=== PATIENT | female | born 1960 | race Caucasian/White ===

== ENCOUNTER → 2017-04-09 | Outpatient (CLI) | payer BC ==
[~2017-04-09] MED LIST: ASPI81TA28 PO; ESCI10TA17 PO; MULT-884 PO; MXRAIN INH; OMEG12006 PO; TEMA30CA4 PO; [UNRECOGNIZED DRUG - OTHER] PO
--- NOTE | 2017-04-09 18:50 | DIAGNOSTIC IMAGING REPORT ---
R HAND MIN 3 VIEWS ROUTINE CLINICAL HISTORY: Right hand pain. Elevated sed right. COMPARISON: None. DISCUSSION: The bones are mildly osteopenic. No fractures are visualized. There are no erosive changes. IMPRESSION: 1. No acute fractures. 2. No evidence of erosive disease Electronically signed by: Rufino Aparicio M.D. 04/09/2017 6:49 PM Dictated Date/Time: 04/09/2017 6:48 PM
--- NOTE | 2017-04-09 18:52 | DIAGNOSTIC IMAGING REPORT ---
L-SPINE MIN 4 VIEWS ROUTINE CLINICAL HISTORY: Upper leg pain. Elevated sedimentation rate. COMPARISON: Lumbar spine radiographs April 08, 2009. FINDINGS: Vertebral body heights are maintained. No fracture or osseous lesion is identified on this exam. There are 5 lumbar type vertebral bodies. Disc spaces are preserved. There is mild endplate osteophytosis and mild multilevel facet arthrosis. Abdominal surgical clips are incidentally noted. IMPRESSION: 1. No lumbar spine fracture. 2. Mild multilevel degenerative disc disease and facet arthrosis. Electronically signed by: Matheus Hernandez M.D. 04/09/2017 6:50 PM Dictated Date/Time: 04/09/2017 6:48 PM
== END | disposition home or self-care (01) ==
LOC: C.RAD 18:21
PROVIDERS: ATTEND Family Medicine
DX: R76.8 Other specified abnormal immunological findings in serum (principal); R70.0 Elevated erythrocyte sedimentation rate; M25.541 Pain in joints of right hand; M79.659 Pain in unspecified thigh

== ENCOUNTER → 2017-09-07 | Outpatient (CLI) | payer OTHER ==
[2017-09-07 15:36] LABS: BASO % 0.3 %; BASO ABS # 0.02 K/uL (0-0.2); HEMATOCRIT 37.1 % (37-47); HEMOGLOBIN 12.8 g/dL (12.0-16.0); IG# 0.02 K/uL (0.00-0.02); LYMPH ABS # 2.31 K/uL (1.2-3.4); MEAN CELL VOLUME 93.5 fL (80-100); MEAN CORPUSCULAR HEMOGLOBIN 32.2 pg (25-34); MEAN CORPUSCULAR HGB CONC 34.5 g/dl (32-36); MONO % 7.5 %; MONO ABS # 0.56 K/uL (0.11-0.59); NEUT % 56.9 %; NEUT ABS # 4.23 K/uL (1.4-6.5); PLATELET COUNT 369 K/uL (130-400); RED CELL DISTRIBUTION WIDTH CV 11.6 % (11.5-14.5); RED CELL DISTRIBUTION WIDTH SD 39.2 fL (36.4-46.3); WHITE BLOOD COUNT 7.44 K/uL (4.8-10.8)
[2017-09-07 15:48] LABS: ALBUMIN 4.2 gm/dl (3.4-5.0); ALT/SGPT 34 U/L (12-78); BLOOD UREA NITROGEN 20 mg/dl (7-18); CALCIUM 9.3 mg/dl (8.5-10.1); CARBON DIOXIDE 24 mmol/L (21-32); CREATININE 1.25 mg/dl (0.60-1.20); GLUCOSE 76 mg/dl (70-99); POTASSIUM 4.1 mmol/L (3.5-5.1); SODIUM 134 mmol/L (136-145)
[2017-09-07 15:53] LABS: ALKALINE PHOSPHATASE 87 U/L (45-117); AST/SGOT 24 U/L (15-37); TOTAL PROTEIN 8.4 gm/dl (6.4-8.2)
[2017-09-07 16:07] LABS: T3 FREE 2.9 pg/ml (2.30-4.20)
[2017-09-11 15:40] LABS: MICROSOMAL AB 4 IU/ML (<9)
== END | disposition home or self-care (01) ==
LOC: C.LAB1850 13:30
PROVIDERS: ATTEND Chiropractor
DX: M79.1 Myalgia (principal)

== ENCOUNTER 2023-07-30 16:21 | Inpatient (IN) ==
--- NOTE | 2023-07-30 16:44 | ED Triage Note ---
Date of Service July 30, 2023 Provider in Triage Author: Luigi Daniel. History of Present Illness This patient was briefly evaluated while in triage. An abbreviated physical exam was performed. This patient is a 63-year-old Female who presents to the ED for evaluation of right hand swelling concern for infection secondary to a dog bite that occurred yesterday. Was bitten yesterday and put on augmentin. Hand is worse today. Referred to ED. Tdap was either 2015 or 2019. Dog up to date on immunizations. Physical Exam CONSTITUTIONAL: in no acute pain or distress, resting comfortably SKIN: pink, warm, dry MSK: R hand wrapped in bandage Initial orders for labs and / or imaging were placed and patient was placed in the waiting area until a bed is available. Please see further documentation for the full ED course.
[2023-07-30 17:20] LABS: Basophils # (auto) 0.05 K/uL (0.00-0.20); Basophils % (auto) 0.5 %; Eosinophils # (auto) 0.24 K/uL (0.00-0.50); Eosinophils % (auto) 2.5 %; Hematocrit (blood only) 38.8 % (37.0-47.0); Hemoglobin 13.2 g/dl (12.0-16.0); Immature Granulocytes # (auto) 0.03 K/uL (0.01-0.20); Immature Granulocytes % (auto) 0.3 %; Lymphocytes # (auto) 1.97 K/uL (1.20-3.40); Lymphocytes % (auto) 20.9 %; Mean Corpuscular Hemoglobin 32.1 pg (25.0-34.0); Mean Corpuscular Volume 94.4 fL (80.0-100.0); Mean Platelet Volume 10.1 fL (9.4-12.4); Monocytes # (auto) 0.89 K/uL (0.11-0.59); Monocytes % (auto) 9.4 %; Neutrophils # (auto) 6.24 K/uL (1.40-6.50); Neutrophils % (auto) 66.4 %; Platelet Count 327 K/uL (130-400); RDW Coefficient of Variation 11.3 % (11.5-14.5); RDW Standard Deviation 38.7 fL (36.4-46.3); Red Blood Count 4.11 M/uL (4.20-5.40); White Blood Count 9.42 K/ul (4.8-10.8)
--- NOTE | 2023-07-30 17:23 | XRay Report ---
RIGHT HAND 3 VIEWS CLINICAL HISTORY: Dog bite injury. Infection. FINDINGS: 3 views of the right hand are compared to study dated 04/09/2017. The skeletal structures a re osteopenic. No fracture is seen. Mild osteoarthritic change is noted throughout the hand. There is dorsal soft tissue edema. No radiodense foreign body or soft tissue gas is identified. IMPRESSION: Soft tissue swelling with no acute bony abnormality identified. Electronically signed by: Sergei Carreon M.D. 07/30/2023 5:22 PM
[2023-07-30 17:36] LABS: Albumin Globulin Ratio 1.4 (0.9-2); Albumin Level 4.6 gm/dl (3.4-5.0); Bilirubin,Total 0.6 mg/dl (0.2-1.0); Calcium 9.5 mg/dl (8.6-10.3); Creatinine Clr Calc Pharmacy 50.8 ml/min; Est GFR (Non-African American) 49.2 ml/min; Globulin 3.2 gm/dl (2.5-4.0); Potassium 4.2 mmol/L (3.5-5.1); Total Protein 7.8 gm/dl (6.0-8.3)
--- NOTE | 2023-07-30 18:30 | Emergency Department Note ---
History of Present Illness General Chief complaint: Animal Bite Stated complaint: DOG BITE ON R HAND Time Seen by Provider: 07/30/23 17:59 History of Present Illness Maximum Pain Intensity: 6 This is a 63-year-old female that presents to the emergency department via private vehicle with complaints of "dog bite to right hand". She is mostly right-hand dominant but does right with her left hand. Yesterday around 1:30 PM she notes that she accidentally stepped on a dog when she bent down. The dog then turned and bit the dorsum of the right hand. She notes that she then presented to the PCP office and it was cleansed and she was started on oral Augmentin. She notes that the dog's vaccines are up-to-date to include rabies. She states that upon awakening today she notes increased pain and swelling to the dorsum of the right hand and trouble moving her fingers. She did have a follow-up today at the PCP office and was sent to the ED today noting worsening symptoms. She denies any numbness or tingling. Home Medications Medication Instructions Recorded Confirmed Type escitalopram oxalate 10 mg tablet 10 mg PO QPM 07/18/18 07/30/23 History (Lexapro) fluticasone propionate 50 1 spray intranasal DAILY 09/15/21 07/30/23 History mcg/actuation nasal spray,suspension melatonin 10 mg tablet 10 mg PO HS 09/15/21 07/30/23 History cholecalciferol (vitamin D3) 125 125 mcg PO DAILY 10/14/21 07/30/23 History mcg (5,000 unit) capsule albuterol sulfate 1.25 mg/3 mL 1.25 mg (3 mL) inhalation QID PRN 07/03/22 07/30/23 Rx solution for nebulization shortness of breath or wheezing #90 mL azelastine 137 mcg (0.1 %) nasal 1 spray intranasal BID #30 mL 07/03/22 07/30/23 Rx spray aerosol nebulizers (Aeroneb Go Nebulizer) #1 ea 07/03/22 06/01/23 Rx budesonide-formoterol HFA 160 2 inh inhalation BID #10.2 grams 03/31/23 07/30/23 Rx mcg-4.5 mcg/actuation aerosol inhaler (Symbicort) Auto Titrating CPAP #1 ea 07/05/23 Rx CPAP Supplies #1 ea 07/05/23 Rx Medical Marijuana 1 gummy PO HS 07/30/23 07/30/23 History amoxicillin 875 mg-potassium 1 tab PO BID 07/30/23 07/30/23 History clavulanate 125 mg tablet pantoprazole 40 mg tablet,delayed 40 mg PO DAILY 07/30/23 07/30/23 History release Allergies Allergy/AdvReac Type Severity Reaction Status Date / Time Milk Containing Products Allergy Unknown Gastrointestinal Unverified 07/30/23 18:30 (Dairy) Upset Sulfa (Sulfonamide Allergy Unknown Unknown Verified 07/30/23 18:30 Antibiotics) NSAIDS (Non-Steroidal AdvReac Severe Advised to Verified 07/30/23 18:30 Anti-Inflamma avoid (solitary kidney) Past Med/Surg History Medical History Solitary kidney s/p donation (2012) Chronic back pain 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 Reactive airway disease Inhaler PRN Surgical History History of surgery Right biceps repair Status post trigger finger release History of nephrectomy, unilateral 2012 (donated) History of cholecystectomy History of appendectomy History of colonoscopy with polypectomy History of eyelid surgery History of sinus surgery History of tooth extraction Social History Smoking Status: Never smoker Tobacco Type: Cigarettes Cigarettes Per Day: 5; Second Hand Exposure: No; Do You Dip or Chew Tobacco: No; Hx Alcohol Use: No Hx Substance Use: Yes Last Used Substance Other:: Pt uses at to help her sleep Substance Use Type Other:: medical sabi Preferred Language: [place] Communication Ability: Effective Fur Stylist Required: No Beliefs That Will Affect Care: None Current Living Situation: Spouse Other Information That Helps Us Care for You: No Feels Safe at Home: Yes Safety Concerns: Feels Safe At This Time Assistive Devices: Glasses Review of Systems A total of 10 systems reviewed and were otherwise negative Physical Exam Vital Signs Vital Signs - 24 hr 07/30/23 16:35 Temperature 36.9 C Temperature Source Temporal Artery Scan Pulse Rate 89 Respiratory Rate 18 Respiratory Effort / Characteristics Non-Labored Spontaneous Respiratory Depth Normal Blood Pressure 111/77 Blood Pressure Mean 88 Pulse Oximetry 96 Oxygen Delivery Method Room Air Sepsis Recent Fever Within 48 Hours No Sepsis New/Unexplained Change in Mental Status No Sepsis Action Taken by Nursing No Action Required VITAL SIGNS - Vital signs and nursing notes were reviewed. Stable and afebrile. GENERAL -63-year-old female appearing her stated age who is in no acute distress. Communicates well with provider and answers questions appropriately. SKIN -erythema overlying the entire dorsum of the right hand with a few small puncture wounds that have crusted over. There is edema to the dorsum of the right hand as well. There is a small of erythema tracking proximal overlying the dorsum of the right wrist into the distal forearm area. No fluctuance or crepitus. HEAD - NC/AT. EYES - Sclera anicteric. LUNGS - Chest wall symmetric without accessory muscle use, intercostals retractions, or central cyanosis. Normal vesicular breath sounds CTA B/L. No wheezes, rales, or rhonchi appreciated. CARDIAC - RRR EXTREMITIES - No clubbing or peripheral cyanosis. Skin as above. Tenderness overlying the entire dorsum of the right wrist and right hand. Patient is not able to actively extend fingers of the right hand and passive extension of all fingers of the right hand does reproduce discomfort to the dorsum of the right hand. Right radial pulse intact. Cap refill of all digits of the right hand within normal limits. +5/5 strength noted in UE/LE bilaterally. NEUROLOGIC -sensory intact throughout the right upper extremity without deficit. PSYCH -patient is alert, oriented and pleasant on exam. Course Administered Medications Escitalopram Oxalate (Escitalopram Oxalate 10 Mg Tab) 10 mg PO QPM [facility] Stop: 08/29/23 23:06 Last Admin: 07/30/23 23:50 Dose: 10 mg Documented By: GERMAINE Ampicillin Sodium/Sulbactam Sodium 3,000 mg/ Sodium Chloride 100 mls @ 100 mls/hr IV Q6H [facility] Stop: 08/07/23 00:00 Last Admin: 07/30/23 23:51 Dose: 100 mls/hr Documented By: GERMAINE Morphine Sulfate (Morphine Sulfate 2 Mg/Ml Carp) 2 mg IV Q4H PRN PRN Reason: Pain(5+) Stop: 08/13/23 19:02 Last Admin: 07/30/23 23:50 Dose: 2 mg Documented By: GERMAINE Discontinued Medications Acetaminophen (Acetaminophen 325 Mg Tab) 650 mg PO NOW STA Stop: 07/30/23 19:04 Last Admin: 07/30/23 19:48 Dose: 650 mg Documented By: MILTON Diphtheria/Pertussis/Tetanus Vacc (Diphther/Tetan/Pertus Vaccine (Tdap, Adol/Adult) 0.5ml) 0.5 ml IM .ONCE ONE Stop: 07/30/23 16:39 Last Admin: 07/30/23 19:01 Dose: Not Given Documented By: FRIDA Ampicillin Sodium/Sulbactam Sodium 3,000 mg/ Sodium Chloride 100 mls @ 200 mls/hr IV NOW STA Stop: 07/30/23 18:53 Last Infusion: 07/30/23 20:42 Dose: Infused Documented By: Admin: 07/30/23 19:06 Dose: 200 mls/hr Documented By: SANCHEZ Morphine Sulfate (Morphine Sulfate 2 Mg/Ml Carp) 2 mg IV NOW STA Stop: 07/30/23 18:25 Last Admin: 07/30/23 19:06 Dose: 2 mg Documented By: SANCHEZ Ondansetron HCl (Ondansetron Inj 2 Mg/Ml 2 Ml Vial) 4 mg IV NOW STA Stop: 07/30/23 18:25 Last Admin: 07/30/23 19:05 Dose: 4 mg Documented By: SANCHEZ Medical Decision Making Laboratory Data 07/30/23 16:51 07/30/23 16:51 Lab Results 07/30/23 Range/Units 16:51 WBC 9.42 (4.8-10.8) K/ul RBC 4.11 L (4.20-5.40) M/uL Hgb 13.2 (12.0-16.0) g/dl Hct 38.8 (37.0-47.0) % MCV 94.4 (80.0-100.0) fL MCH 32.1 (25.0-34.0) pg MCHC 34.0 (32.0-36.0) g/dL RDW Std Deviation 38.7 (36.4-46.3) fL RDW Coeff of Boy 11.3 L (11.5-14.5) % Plt Count 327 (130-400) K/uL MPV 10.1 (9.4-12.4) fL Immature Gran % (Auto) 0.3 % Neut % (Auto) 66.4 % Lymph % (Auto) 20.9 % [place] % (Auto) 9.4 % Eos % (Auto) 2.5 % Baso % (Auto) 0.5 % Neut # (Auto) 6.24 (1.40-6.50) K/uL Lymph # (Auto) 1.97 (1.20-3.40) K/uL [place] # (Auto) 0.89 H (0.11-0.59) K/uL Eos # (Auto) 0.24 (0.00-0.50) K/uL Baso # (Auto) 0.05 (0.00-0.20) K/uL Immature Gran # (Auto) 0.03 (0.01-0.20) K/uL Sodium 136 (136-145) mmol/L Potassium 4.2 (3.5-5.1) mmol/L Chloride 104 (98-107) mmol/L Carbon Dioxide 24 (21-32) mmol/L Anion Gap 8 (3-11) BUN 14 (6-23) mg/dl Creatinine 1.17 (0.6-1.2) mg/dl Est Cr Clr Drug Dosing 50.8 ml/min Est GFR ( Amer) 57.0 ml/min Est GFR (Non-Af Amer) 49.2 ml/min BUN/Creatinine Ratio 12.0 (10-20) Glucose 92 (70-99(Fasting)) mg/dl Calcium 9.5 (8.6-10.3) mg/dl Total Bilirubin 0.6 (0.2-1.0) mg/dl AST 19 (13-39) U/L ALT 15 (7-52) U/L Alkaline Phosphatase 102 (34-104) U/L Total Protein 7.8 (6.0-8.3) gm/dl Albumin 4.6 (3.4-5.0) gm/dl Globulin 3.2 (2.5-4.0) gm/dl Albumin/Globulin Ratio 1.4 (0.9-2) Imaging Data Radiologist's Impression: Hand X-Ray 07/30/23 16:38 RIGHT HAND 3 VIEWS CLINICAL HISTORY: Dog bite injury. Infection. FINDINGS: 3 views of the right hand are compared to study dated 04/09/2017. The skeletal structures are osteopenic. No fracture is seen. Mild osteoarthritic change is noted throughout the hand. There is dorsal soft tissue edema. No radiodense foreign body or soft tissue gas is identified. IMPRESSION: Soft tissue swelling with no acute bony abnormality identified. Electronically signed by: Sergei Carreon M.D. 07/30/2023 5:22 PM MDM Narrative Patient was seen and evaluated as above in room D09. Review was performed of triage nursing notes and vital signs. After obtaining a thorough history and physical examination the above work up was performed. Patient presents to us today for evaluation of increasing pain, edema, erythema to the dorsum of the right hand status post dog bite yesterday despite cleansing the wounds and oral Augmentin. She is well-appearing and nontoxic on exam but appears to be in pain. Options of care were discussed with the patient. Patient was seen during a period of high volume and acuity in the department and already underwent workup from triage. Labs reveal no leukocytosis or concerning anemia. No emergent metabolic disturbance. X-ray negative for fracture. No radiopaque foreign body. Blood cultures pending. IV Unasyn was ordered for coverage of the dog bite infection to the dorsum of the right hand. I do recommend IV antibiotics and inpatient management noting location, rapid progression of the infection. Case discussed with the hospitalist service. Please refer to further documentation regarding her stay. Patient amenable to plan. I did cleanse the dorsum of the right hand with sterile saline. Thin layer bacitracin applied to the puncture wounds followed by sterile gauze and sterile wrap. Care was taken so as to not apply too tightly. In the evaluation and treatment of this patient the following differential diagnoses were entertained: Cellulitis, abscess, extensor tenosynovitis, fracture, among others. Impression & Plan Infected dog bite of hand, Cellulitis of hand, right Discharge Plan Visit Data Chief Complaint: Animal Bite Stated Complaint: DOG BITE ON R HAND ED Provider: Gayatri Lopez ED Midlevel Provider: Jack Delgado Discharge Problem: Infected dog bite of hand, Cellulitis of hand, right Patient Disposition: Admitted As Inpatient Condition: Good Discharge Instructions Interventions: ED Discharge Assessment Last Done: 07/30/23 22:37
--- NOTE | 2023-07-30 18:34 | History & Physical Report ---
Date of Service July 30, 2023 Assessment & Plan (1) Cellulitis of hand, right: Plan: -Admit to med/surge -Currently stable and non-toxic appearing -Presented to the ED for progressive swelling and erythema on the dorsum of the right hand and wrist after sustaining a dog bite on 07/29/23 -The ED was able to confirm that the dog is up to date on it's rabies vaccination -Patient is up to date on tetanus booster -Was started on Augmentin by PCP yesterday but cellulitis has progressed -Is afebrile and without leukocytosis -Blood cultures were obtained in the ED -S/P one dose of Unasyn in the ED, will continue with Unasyn for now -Currently cellulitis border was outlined on admission, monitor for improvement -Tylenol and morphine for pain -BL SCD's for DVT PPX -HH diet -AM CBC, bmp (2) Asthma: Plan: -Stable on RA -Lungs are clear -Continue PRN albuterol (3) BENITEZ on CPAP: Plan: -HS CPAP ordered Plan The patient was discussed with Dr. Yeh at the time of the admission History of Present Illness Chief Complaint: Recent animal bite, worsening Primary Care Provider: DO Nancy Lrne is a 63 year old female with a PMH significant for asthma, anxiety, and previous kidney donation for transplant who presented to the [facility] ED on 07/30/23 due to concerns of worsening cellulitis of the right hand. Per the ED, the patient was bit by her Boss' dog yesterday after she accidentally stepped on it while trying to clean something off the floor. She was seen by her PCP's office yesterday where they cleaned the wound and started her on Augmentin. She was seen for follow up earlier today and there was concern as the patient's erythema, swelling, and pain has increased. We were asked to admit the patient for IV antibiotics. She remained stable in the ED. Labs including CBC and CMP were unremarkable. Xray of the right hand was read as "Soft tissue swelling with no acute bony abnormality identified.". Prior to admission the patient was given a dose of Unasyn, 2mg IV morphine, and 4 mg IV zofran. The ED was able to confirm that the patient is up to date on her tetanus booster. At the time of the exam the patient was sitting in bed in no acute distress. She confirms the above history. She states that the swelling in the right hand is preventing her from completely closing her fist. She denies recent fever, chills, chest pain, SOB, abd pain, nausea, vomiting, diarrhea, dysuria, hematuria, melena. She is a full code and would want her to make medical decisions for her if she cannot make them herself. Please refer to Dr. Yeh's attestation for any changes to the treatment plan Allergies Allergy/AdvReac Type Severity Reaction Status Date / Time Milk Containing Products Allergy Unknown Gastrointestinal Unverified 07/30/23 18:30 (Dairy) Upset Sulfa (Sulfonamide Allergy Unknown Unknown Verified 07/30/23 18:30 Antibiotics) NSAIDS (Non-Steroidal AdvReac Severe Advised to Verified 07/30/23 18:30 Anti-Inflamma avoid (solitary kidney) Home Medications Medication Instructions Recorded Confirmed Type escitalopram oxalate 10 mg tablet 10 mg PO QPM 07/18/18 07/30/23 History (Lexapro) fluticasone propionate 50 1 spray intranasal DAILY 09/15/21 07/30/23 History mcg/actuation nasal spray,suspension melatonin 10 mg tablet 10 mg PO HS 09/15/21 07/30/23 History cholecalciferol (vitamin D3) 125 125 mcg PO DAILY 10/14/21 07/30/23 History mcg (5,000 unit) capsule albuterol sulfate 1.25 mg/3 mL 1.25 mg (3 mL) inhalation QID PRN 07/03/22 07/30/23 Rx solution for nebulization shortness of breath or wheezing #90 mL azelastine 137 mcg (0.1 %) nasal 1 spray intranasal BID #30 mL 07/03/22 07/30/23 Rx spray aerosol nebulizers (Aeroneb Go Nebulizer) #1 ea 07/03/22 06/01/23 Rx budesonide-formoterol HFA 160 2 inh inhalation BID #10.2 grams 03/31/23 07/30/23 Rx mcg-4.5 mcg/actuation aerosol inhaler (Symbicort) Auto Titrating CPAP #1 ea 07/05/23 Rx CPAP Supplies #1 ea 07/05/23 Rx Medical Marijuana 1 gummy PO HS 07/30/23 07/30/23 History amoxicillin 875 mg-potassium 1 tab PO BID 07/30/23 07/30/23 History clavulanate 125 mg tablet pantoprazole 40 mg tablet,delayed 40 mg PO DAILY 07/30/23 07/30/23 History release Past Med/Surg History Medical History Solitary kidney s/p donation (2013) Chronic back pain 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 Reactive airway disease Inhaler PRN Surgical History History of surgery Right biceps repair Status post trigger finger release History of nephrectomy, unilateral 2012 (donated) History of cholecystectomy History of appendectomy History of colonoscopy with polypectomy History of eyelid surgery History of sinus surgery History of tooth extraction Social History Smoking Status: Never smoker Tobacco Type: Cigarettes Cigarettes Per Day: 5; Second Hand Exposure: No; Do You Dip or Chew Tobacco: No; Hx Alcohol Use: No Hx Substance Use: Yes Last Used Substance Other:: Pt uses at HS to help her sleep Substance Use Type Other:: medical sabi Preferred Language: Estonian Communication Ability: Effective Field Care Advocate Required: No Beliefs That Will Affect Care: None Current Living Situation: Spouse Other Information That Helps Us Care for You: No Feels Safe at Home: Yes Safety Concerns: Feels Safe At This Time Assistive Devices: Glasses Physical Exam 2 Physical Exam: Physical Exam: General: In no acute distress, stated age, well-nourished, good hygiene HEENT: Normocephalic, atraumatic, no scleral icterus, pupils around round, symmetrical, and reactive to light, moist mucus membranes, trachea midline, no thyromegaly Chest/Pulm: No respiratory distress, symmetrical chest expansion, clear breath sounds throughout Cardiac: RRR, no murmurs noted Abdomen: Negative for ascites and bruising, normoactive bowel sounds, soft, non-tender to palpation throughout Musculoskeletal: See picture below Extremities: Radial pulses are intact and symmetrical BL Skin: See picture below Neuro: Intact sensation and motor function in the Right wrist and hand Psych: No acute distress, calm and cooperative during the exam Results & Data Results & Data Vital Signs (Past 12 Hours) Vital Signs Temp Pulse Resp BP Pulse Ox O2 Del Method 07/30/23 16:35 36.9 C 89 18 111/77 96 Room Air Laboratory Results Abnormal lab results 07/30/23 Range/Units 16:51 RBC 4.11 L (4.20-5.40) M/uL RDW Coeff of Boy 11.3 L (11.5-14.5) % [place] # (Auto) 0.89 H (0.11-0.59) K/uL Diagnostic Findings Hand X-Ray 07/30/23 16:38 RIGHT HAND 3 VIEWS CLINICAL HISTORY: Dog bite injury. Infection. FINDINGS: 3 views of the right hand are compared to study dated 04/09/2017. The skeletal structures are osteopenic. No fracture is seen. Mild osteoarthritic change is noted throughout the hand. There is dorsal soft tissue edema. No radiodense foreign body or soft tissue gas is identified. IMPRESSION: Soft tissue swelling with no acute bony abnormality identified. Electronically signed by: Sergei Carreon M.D. 07/30/2023 5:22 PM Code Status & VTE Plan Code Status Full code VTE Prophylaxis Plan VTE Prophylaxis will be ordered: Yes Supervising Physician Co-Signing Physician Notes I personally saw and examined the patient. I verified all cline points and agree with Familia James PA-C with the following exceptions and/or additions: 63 year old female presents to the ER following a dog bite. Started Augmentin yesterday (took 2 tablets). O/E HS RRR, no murmurs, Chest CTAB, cellulitis already improving from marked area. A/P Cellulitis from animal bite - Flexor surface not effected. Unasyn 3g IV q6h. Can likely go back on Augmentin on discharge - likely just didn't have time to work. Elevated RUE. PG Care Time/CCT Total # of Minutes Spent Total Time Spent with Patient: Total time spent is greater than 50% in coordination of care (as documented) at patient's floor/unit and/or counseling patient: [place] [address] INT INP/OBS CARE 2/55MIN Patient Type Established Medical Decision Making High Complexity Diagnoses Cellulitis of hand, right L03.113 Asthma J45.909 BENITEZ on CPAP G47.33
[2023-07-30] MEDS: DIPHTHER/TETAN/PERTUS Vaccine (Tdap, Adol/Adult) 0.5mL IM ONE (19:01)
[2023-07-30] MEDS: ONDANSETRON INJ 2 MG/ML 2 ML VIAL IV STA (19:05)
[2023-07-30] MEDS: MoRPHine SULFATE 2 MG/ML CARP IV STA (19:06)
[2023-07-30] MEDS: AMPICILLIN/SULBACTAM SOD 3,000 MG in SODIUM CHLOR 0.9% MINI-B 100 ML IV STA (19:06)
[2023-07-30] MEDS: ACETAMINOPHEN 325 MG TAB PO STA (19:48)
[2023-07-30] MEDS ORDERED: ALBUTEROL 0.083% NEBU SOLN 3 ML VIAL INH PRN (23:22)
[2023-07-30] MEDS: MoRPHine SULFATE 2 MG/ML CARP IV PRN (23:50)
[2023-07-30] MEDS: ESCITALOPRAM OXALATE 10 MG TAB PO SCH (23:50)
[2023-07-30] MEDS: AMPICILLIN/SULBACTAM SOD 3,000 MG in SODIUM CHLOR 0.9% MINI-B 100 ML IV SCH (23:51)
[2023-07-31] MEDS: ACETAMINOPHEN 325 MG TAB PO PRN (03:33)
[2023-07-31 06:18] LABS: Basophils # (auto) 0.03 K/uL (0.00-0.20); Basophils % (auto) 0.4 %; Eosinophils # (auto) 0.21 K/uL (0.00-0.50); Eosinophils % (auto) 2.8 %; Hematocrit (blood only) 35.4 % (37.0-47.0); Hemoglobin 11.8 g/dl (12.0-16.0); Immature Granulocytes # (auto) 0.02 K/uL (0.01-0.20); Immature Granulocytes % (auto) 0.3 %; Lymphocytes # (auto) 1.54 K/uL (1.20-3.40); Lymphocytes % (auto) 20.6 %; Mean Corpuscular Hemoglobin 32.2 pg (25.0-34.0); Mean Corpuscular Hgb Conc 33.3 g/dL (32.0-36.0); Mean Corpuscular Volume 96.7 fL (80.0-100.0); Mean Platelet Volume 9.6 fL (9.4-12.4); Monocytes % (auto) 12.1 %; Neutrophils # (auto) 4.76 K/uL (1.40-6.50); Neutrophils % (auto) 63.8 %; Platelet Count 308 K/uL (130-400); RDW Coefficient of Variation 11.3 % (11.5-14.5); RDW Standard Deviation 40.1 fL (36.4-46.3); Red Blood Count 3.66 M/uL (4.20-5.40); White Blood Count 7.46 K/ul (4.8-10.8)
--- NOTE | 2023-07-31 07:51 | Hospitalist Progress Note ---
Date of Service July 31, 2023 Assessment & Plan Plan 1) Cellulitis of hand, right: Plan: -Admit to med/surge -Currently stable and non-toxic appearing -Presented to the ED for progressive swelling and erythema on the dorsum of the right hand and wrist after sustaining a dog bite on 07/29/23 -ED confirmed dog up to date on it's rabies vaccination -Patient is up to date on tetanus booster -Started on Augmentin by PCP yesterday but cellulitis has progressed -Pt afebrile, without leukocytosis -Blood cultures obtained in the ED, pending -S/P one dose of Unasyn in the ED, continue Unasyn for now -Currently cellulitis border was outlined on admission, monitor for improvement -Tylenol and morphine for pain -BL SCD's for DVT PPX -HH diet -AM CBC, bmp (2) Asthma: -Stable on RA -Lungs are clear -Continue PRN albuterol (3) BENITEZ on CPAP: -HS CPAP ordered FENGI: regular diet Code status: Full Code DVT prophylaxis: lovenox Isolation: none Disposition: med/surg Admission and Anticipated Discharge Date Admission Date: July 30, 2023 Subjective Chief Complaint: Recent animal bite, worsening Primary Care Provider: Marybeth Avila DO Bibi is a 63 yo F w/PMHx significant for asthma, anxiety, and previous kidney donation for transplant who presented to the [facility] ED on 07/30/23 due to concerns of worsening cellulitis of the right hand. Per the ED, the patient was bit by her Boss' dog yesterday after she accidentally stepped on it while trying to clean something off the floor. She was seen by her PCP's office yesterday where they cleaned the wound and started her on Augmentin. She was seen for follow up earlier today and there was concern as the patient's erythema, swelling, and pain has increased. We were asked to admit the patient for IV antibiotics. She remained stable in the ED. Labs including CBC and CMP were unremarkable. X-ray of the right hand was read as "Soft tissue swelling with no acute bony abnormality identified.". Prior to admission the patient was given a dose of Unasyn, 2mg IV morphine, and 4 mg IV zofran. The ED was able to confirm that the patient is up to date on her tetanus booster. At the time of the exam the patient was sitting in bed in no acute distress. She confirms the above history. She states that the swelling in the right hand is preventing her from completely closing her fist. She denies recent fever, chills, chest pain, SOB, abd pain, nausea, vomiting, diarrhea, dysuria, hematuria, melena. She is a full code and would want her to make medical decisions for her if she cannot make them herself. Review of Systems Constitutional: no fever, no chills and no fatigue Respiratory: no cough, no chest congestion and no dyspnea Cardiovascular: no chest pain and no palpitations Gastrointestinal: no abdominal pain, no nausea, no vomiting, no constipation and no diarrhea/loose stools Musculoskeletal: + swelling (dorsal aspect of r. hand and wrist) and + myalgia Neurologic: no localized weakness, no loss of sensation, no tingling, no numbness and no paresthesia Physical Exam Constitutional: WD/WN, vitals as above cooperative, comfortable and + overweight Results & Data Results & Data Vital Signs (Past 12 Hours) Vital Signs Temp Pulse Pulse Resp BP BP Pulse Ox 07/30/23 23:31 36.8 C 63 16 127/57 L 93 07/30/23 22:37 60 16 114/53 L 93 07/30/23 22:00 66 20 135/82 93 07/30/23 20:06 60 21 144/69 H 95 O2 Del Method 07/30/23 23:31 Room Air 07/30/23 22:37 Room Air 07/30/23 22:00 Room Air 07/30/23 20:06 Room Air
[2023-07-31 08:03] LABS: Potassium 4.2 mmol/L (3.5-5.1)
[2023-07-31 08:09] LABS: BUN Creatinine Ratio 10.9 (10-20); Creatinine Clr Calc Pharmacy 49.4 ml/min; Est GFR (African American) 55.9 ml/min; Est GFR (Non-African American) 48.2 ml/min
[2023-07-31] MEDS: PANTOprazole 40 MG TAB PO SCH (08:25)
[2023-07-31] MEDS: FLUTICASONE/VILANTEROL 100/25MCG 14 PUFFS/INHALER INH SCH (08:25)
--- NOTE | 2023-07-31 15:38 | Discharge Summary ---
Date of Service July 31, 2023 Admission HPI Per Admitting Provider Bibi is a 63 year old female with a PMH significant for asthma, anxiety, and previous kidney donation for transplant who presented to the [facility] ED on 07/30/23 due to concerns of worsening cellulitis of the right hand. Per the ED, the patient was bit by her Boss' dog yesterday after she accidentally stepped on it while trying to clean something off the floor. She was seen by her PCP's office yesterday where they cleaned the wound and started her on Augmentin. She was seen for follow up earlier today and there was concern as the patient's erythema, swelling, and pain has increased. We were asked to admit the patient for IV antibiotics. She remained stable in the ED. Labs including CBC and CMP were unremarkable. Xray of the right hand was read as "Soft tissue swelling with no acute bony abnormality identified.". Prior to admission the patient was given a dose of Unasyn, 2mg IV morphine, and 4 mg IV zofran. The ED was able to confirm that the patient is up to date on her tetanus booster. At the time of the exam the patient was sitting in bed in no acute distress. She confirms the above history. She states that the swelling in the right hand is preventing her from completely closing her fist. She denies recent fever, chills, chest pain, SOB, abd pain, nausea, vomiting, diarrhea, dysuria, hematuria, melena. She is a full code and would want her to make medical decisions for her if she cannot make them herself. Please refer to Dr. Yeh's attestation for any changes to the treatment plan Admission Exam Per Admitting Provider Physical Exam: Physical Exam: General: In no acute distress, stated age, well-nourished, good hygiene HEENT: Normocephalic, atraumatic, no scleral icterus, pupils around round, symmetrical, and reactive to light, moist mucus membranes, trachea midline, no thyromegaly Chest/Pulm: No respiratory distress, symmetrical chest expansion, clear breath sounds throughout Cardiac: RRR, no murmurs noted Abdomen: Negative for ascites and bruising, normoactive bowel sounds, soft, non- tender to palpation throughout Musculoskeletal: See picture below Extremities: Radial pulses are intact and symmetrical BL Skin: See picture below Neuro: Intact sensation and motor function in the Right wrist and hand Psych: No acute distress, calm and cooperative during the exam Principal Diagnosis dog bite, r. hand cellulitis Discharge Exam Constitutional WD/WN, vitals as above cooperative, comfortable and + overweight Neck + neck tender; negative Brudzinski's sign and negative Kernig's sign Respiratory normal respiratory effort, lungs clear to auscultation Cardiovascular RRR, no murmur, no edema Gastrointestinal (Abdomen) normal bowel sounds, soft, nontender, no hepatosplenomegaly Musculoskeletal Extremities: + hand abnormality (redness, swelling on dorsal aspect of r. hand) Right Neurologic Motor/Sensory: normal movement (grasping, palmar flexion and extension normal in r. hand) and no sensory deficit (normal to light touch, pain) Psychiatric A+Ox3, euthymic affect Discharge Data Allergies Allergy/AdvReac Type Severity Reaction Status Date / Time Milk Containing Products Allergy Unknown Gastrointestinal Unverified 07/30/23 18:30 (Dairy) Upset Sulfa (Sulfonamide Allergy Unknown Unknown Verified 07/30/23 18:30 Antibiotics) NSAIDS (Non-Steroidal AdvReac Severe Advised to Verified 07/30/23 18:30 Anti-Inflamma avoid (solitary kidney) Consultations 07/30/23 18:40 ED Decision to Admit Stat Hospital Course (1) Infected dog bite of hand: (2) Cellulitis of hand, right: Plan 1) Cellulitis of hand, right -Presented to ED for progressive swelling, erythema on dorsum of the right hand, wrist after sustaining a dog bite on 07/29/23 -Started on Augmentin by PCP yesterday but cellulitis progressing -ED confirmed that dog is up to date on it's rabies vaccination, Patient up to date on tetanus booster -Blood cultures obtained in ED, pending upon discharge -S/P 4 doses of Unasyn, q6hr, 3000 mg, IV during hospital stay -With improving cellulitis she is discharged on Augmentin, 875/125 mg, BID, 12 more days of antibiotic dosing Total Time Total Time Spent Total Time Spent (In Minutes): see attending attestation Discharge Plan Discharge Items Patient Disposition: Home - Self-Care Reason For Visit: RIGHT HAND CELLULITIS Discharge Diagnosis: r. hand cellulitis Condition on Discharge: Good Activity: Resume your previous activity Non-emergency contact: Primary Care Provider Call non-emergency contact if: you have any medication questions, your symptoms worsen and you have a fever Follow-up/Referrals: Marybeth Avila DO [Primary Care Provider] - Diet: Regular Addtl Attending Provider Instructions: You were admitted to the hospital for right hand cellulitis associated with a dog bite. You were treated with ampicillin/sulbactam, morphine sulfate, Tylenol. A discharge summary will be sent to your primary care physician to ensure continuity of care. Please bring this discharge summary with you to your next office appointment so that your provider can review it at that time. Follow-up appointments: We have requested a follow-up appointment with your primary care physician within one week of discharge. Please call their office if you do not hear from them. Keep all your follow-up appointments as already scheduled. If you cannot make an appointment, notify your provider. Medications: Your medication list has been reviewed and reconciled upon discharge to ensure accuracy and continuity of care. An updated list of all your medications is included with your hospital discharge paperwork. Please review this list closely, and make note of any changes. We sent an extended course of a medication called Augmentin to your pharmacy. Take Augmentin 875/125 mg/one tablet, twice a day, for 12 more days. Take ibuprofen, naproxen sodium, or Tylenol for pain control, using dosing recommendations on the bottle. Take your medications as instructed; do not skip a dose of your medicines. Make sure all of your doctors know every medicine you are taking (including unct-lht-vkcqhab medicines, vitamins, and supplements). Call your primary care provider before taking any new medicines (including nxcq-odx-lzgzfwu medicines, vitamins, and supplements), because some of these may interact with your current medications, or may make your symptoms worse. Tell your primary care provider if you cannot afford your medications. CONTACT YOUR PRIMARY CARE PROVIDER if you experience any of the following: redness, swelling, warmth, pain or the hand that is not improving with antibiotics fevers, chills, spreading of the cellulitis Difficulty following your treatment plan, or difficulty taking medications CALL 911 OR GO TO THE EMERGENCY DEPARTMENT if you experience any of the following: Sudden, severe abdominal pain or nausea/vomiting Severe chest pain, or chest pain that radiates (moves) to your jaw or arm Sudden, severe shortness of breath or difficulty breathing Thank you for allowing us to participate in your care Pending Studies at Discharge: Yes Studies:: blood cultures Stand-Alone Forms: My [facility], Smoking Cessation Medications and DC Order Prescriptions: New amoxicillin-pot clavulanate 875-125 mg tablet 1 tab PO BID Qty: 14 0RF Continued (DME) Auto Titrating CPAP Misc See Rx Instructions .MEDSUPPLY Qty: 1 0RF Rx Instructions: Auto PAP with 5-16cm H20. Lifetime usage. G47.33 (DME) CPAP Supplies Misc See Rx Instructions .MEDSUPPLY Qty: 1 0RF Rx Instructions: CPAP supplies, mask, headgear, filters, tubing, water chamber. G47.33 cholecalciferol (vitamin D3) 125 mcg (5,000 unit) capsule 125 mcg PO DAILY albuterol sulfate 1.25 mg/3 mL solution for nebulization 1.25 mg inhalation QID PRN (Reason: shortness of breath or wheezing) Qty: 90 3RF azelastine 137 mcg (0.1 %) aerosol,spray 1 spray INTRANASAL BID Qty: 30 3RF (DME) nebulizers [Aeroneb Go Nebulizer] Misc See Rx Instructions .MEDSUPPLY Qty: 1 0RF Rx Instructions: With tubing and supplies. J44.9. J45.9. budesonide-formoterol [Symbicort] 160-4.5 mcg/actuation HFA aerosol inhaler 2 inh inhalation BID Qty: 10.2 12RF escitalopram oxalate [Lexapro] 10 mg Tablet 10 mg PO QPM fluticasone propionate 50 mcg/actuation [place],Suspension 1 spray INTRANASAL DAILY melatonin 10 mg Tablet 10 mg PO HS pantoprazole 40 mg tablet,delayed release (DR/EC) 40 mg PO DAILY amoxicillin-pot clavulanate 875-125 mg tablet 1 tab PO BID Rx Instructions: Start Date 07/29/23 - End Date 08/05/23. Patient has taken 3 doses as of 07/30/23 Medical Marijuana 1 gummy PO HS Discharge Orders: Discharge Order (Routine); Ordered 07/31/23 Ordered By: Regino Salcido Admission Data Admit Date/Time: 07/30/23 18:43 Attending Provider: Karishma Hernandez Admit Provider: Aidan Yeh Primary Care Provider: Marybeth Avila Other Providers: Aidan Yeh Supervising Physician Co-Signing Physician Notes Attending Physician Supervision Note: I independently interviewed and examined the patient and verified the cline history and physical, reviewed labs and image studies and agree with findings and care plan noted above. Resident Activity Tracking Resident Involvement: Resident Care Provided Care Provided: Adult [facility]
--- NOTE | 2023-07-31 17:46 | Hospitalist Progress Note ---
Date of Service July 31, 2023 Assessment & Plan (1) Infected dog bite of hand: (2) Cellulitis of hand, right: Plan: (1) Cellulitis of hand, right: -Admit to med/surge, Currently stable and non-toxic appearing -Presented to ED for progressive swelling and erythema on dorsum of the right hand and wrist after sustaining a dog bite on 07/29/23 -ED able to confirm that dog up to date on rabies vaccination -Patient is up to date on tetanus booster -Was started on Augmentin by PCP yesterday but cellulitis has progressed -Afebrile, without leukocytosis -Blood cultures obtained in ED, pending -S/P one dose of Unasyn in the ED, continuing with Unasyn for now -Currently cellulitis border was outlined on admission, monitor for improvement -Tylenol and morphine for pain -AM CBC, BMP (2) Asthma: -Stable on RA -Lungs are clear -Continue PRN albuterol (3) BENITEZ on CPAP: -HS CPAP ordered DVT Prophylaxis: BL SCD's for DVT PPX FENGI: diet Code status: Full code Admission and Anticipated Discharge Date Admission Date: July 30, 2023 Supervising Physician Co-Signing Physician Notes Attending Physician Supervision Note: I independently interviewed and examined the patient and verified the cline history and physical, reviewed labs and image studies and agree with findings and care plan noted above. Right hand cellulitis from dog bite- Some improvement in hand swelling and redness. continue IV antibotics. [place] [address] History & Physical Report Signed Patient: BIBI UNGER Admit Date: 07/30/23 MR#: [id number] Att Phy: Karishma Hernandez MD Acct ID: [id number] [place] Phy: Marybeth Avila DO Date: 1960 Fam Phy: Age: 63 Location: 3N Sex: F Room/Bed: [facility]-2 cc: ~ *NOTICE TO RECEIVING GREEN PARTY/AGENCY This information is strictly Confidential and protected under [place] law. [place] law prohibits you from making any further disclosure of this information unless further disclosure is expressly permitted by the written consent of the person to whom it pertains or is authorized by law. A general authorization for the release of medical or other information is not sufficient for this purpose. Hospital accepts no responsibility if the information is made available to any other person, INCLUDING THE PATIENT. Date of Service July 30, 2023 Assessment & Plan (1) Cellulitis of hand, right: Plan: -Admit to med/surge -Currently stable and non-toxic appearing -Presented to the ED for progressive swelling and erythema on the dorsum of the right hand and wrist after sustaining a dog bite on 07/29/23 -The ED was able to confirm that the dog is up to date on it's rabies vaccination -Patient is up to date on tetanus booster -Was started on Augmentin by PCP yesterday but cellulitis has progressed -Is afebrile and without leukocytosis -Blood cultures were obtained in the ED -S/P one dose of Unasyn in the ED, will continue with Unasyn for now -Currently cellulitis border was outlined on admission, monitor for improvement -Tylenol and morphine for pain -BL SCD's for DVT PPX -HH diet -AM CBC, bmp (2) Asthma: Plan: -Stable on RA -Lungs are clear -Continue PRN albuterol (3) BENITEZ on CPAP: Plan: -HS CPAP ordered Plan The patient was discussed with Dr. Yeh at the time of the admission History of Present Illness Chief Complaint: Recent animal bite, worsening Primary Care Provider: DO Nancy Lrne is a 63 year old female with a PMH significant for asthma, anxiety, and previous kidney donation for transplant who presented to the [facility] ED on 07/30/23 due to concerns of worsening cellulitis of the right hand. Per the ED, the patient was bit by her Boss' dog yesterday after she accidentally stepped on it while trying to clean something off the floor. She was seen by her PCP's office yesterday where they cleaned the wound and started her on Augmentin. She was seen for follow up earlier today and there was concern as the patient's erythema, swelling, and pain has increased. We were asked to admit the patient for IV antibiotics. She remained stable in the ED. Labs including CBC and CMP were unremarkable. Xray of the right hand was read as "Soft tissue swelling with no acute bony abnormality identified.". Prior to admission the patient was given a dose of Unasyn, 2mg IV morphine, and 4 mg IV zofran. The ED was able to confirm that the patient is up to date on her tetanus booster. At the time of the exam the patient was sitting in bed in no acute distress. She confirms the above history. She states that the swelling in the right hand is preventing her from completely closing her fist. She denies recent fever, chills, chest pain, SOB, abd pain, nausea, vomiting, diarrhea, dysuria, hematuria, melena. She is a full code and would want her to make medical decisions for her if she cannot make them herself. I saw the patient this morning and examined her hand where she had been bitten by the dog. The erthematous margins of where the cellulitis was had been marked by a pen and appeared to be receding. The swelling had also gone down when compared to a photo taken the night before. The patient did not endorse any feelings of feverishness or chills and was able to grasp my fingers equally strongly with both the r. and l. hands. Palmar flexion and extension were also normal along with light touch and pain sensation on the hand. I re-examined the hand again in the late afternoon and it appeared to have gotten worse, with increasing erythematous margins particularly around the thumb, increased swelling in MCPs of hand, with decreased range of motion of the fingers. The patient will remain in the hospital overnight. Review of Systems Constitutional: no fever, no chills and no fatigue Respiratory: no cough, no chest congestion and no dyspnea Cardiovascular: no chest pain and no palpitations Gastrointestinal: no abdominal pain, no nausea, no vomiting, no constipation and no diarrhea/loose stools Genitourinary: no dysuria and no urinary frequency Musculoskeletal: + stiffness (neck stiffness) Neurologic: + headache(s) Physical Exam Constitutional: WD/WN, vitals as above cooperative and comfortable Neck: + neck tender; negative Brudzinski's sig n and negative Kernig's sign Respiratory: normal respiratory effort, lungs clear to auscultation Cardiovascular: RRR, no murmur, no edema Gastrointestinal (Abdomen): normal bowel sounds, soft, nontender, no hepatosplenomegaly Musculoskeletal: Extremities: + hand abnormality (redness, swelling on dorsal aspect of r. hand) Neurologic: Motor/Sensory: normal movement (grasping, palmar flexion and extension normal in r. hand) and no sensory deficit (normal to light touch, pain) Psychiatric: A+Ox3, euthymic affect Results & Data Results & Data Vital Signs (Past 12 Hours) Vital Signs Temp Pulse Resp BP Pulse Ox O2 Del Method 07/31/23 15:47 37.2 C 65 16 136/75 94 07/31/23 15:04 37.2 C 65 16 136/75 94 Room Air 07/31/23 07:59 36.9 C 62 16 138/75 94 Room Air
[2023-07-31] MEDS: guaiFENesin/CODEINE 100MG/10MG 5ML UDC PO STA (20:30)
[2023-07-31] MEDS: MELATONIN 3 MG TAB PO PRN (20:30)
[2023-08-01 06:36] LABS: Basophils # (auto) 0.04 K/uL (0.00-0.20); Basophils % (auto) 0.6 %; Eosinophils # (auto) 0.26 K/uL (0.00-0.50); Eosinophils % (auto) 3.7 %; Hematocrit (blood only) 32.9 % (37.0-47.0); Hemoglobin 11.6 g/dl (12.0-16.0); Immature Granulocytes # (auto) 0.02 K/uL (0.01-0.20); Immature Granulocytes % (auto) 0.3 %; Lymphocytes # (auto) 2.09 K/uL (1.20-3.40); Lymphocytes % (auto) 29.5 %; Mean Corpuscular Hgb Conc 35.3 g/dL (32.0-36.0); Mean Corpuscular Volume 93.5 fL (80.0-100.0); Mean Platelet Volume 9.8 fL (9.4-12.4); Monocytes # (auto) 0.77 K/uL (0.11-0.59); Monocytes % (auto) 10.9 %; Platelet Count 310 K/uL (130-400); RDW Coefficient of Variation 11.1 % (11.5-14.5); RDW Standard Deviation 37.5 fL (36.4-46.3); Red Blood Count 3.52 M/uL (4.20-5.40); White Blood Count 7.08 K/ul (4.8-10.8)
[2023-08-01 07:04] LABS: BUN Creatinine Ratio 13.2 (10-20); Calcium 9.1 mg/dl (8.6-10.3); Creatinine Clr Calc Pharmacy 45.5 ml/min; Est GFR (African American) 50.7 ml/min; Est GFR (Non-African American) 43.7 ml/min; Potassium 4.1 mmol/L (3.5-5.1)
--- NOTE | 2023-08-01 11:51 | Hospitalist Progress Note ---
Date of Service August 01, 2023 Assessment & Plan (1) Infected dog bite of hand: (2) Cellulitis of hand, right: Plan: (1) Cellulitis of hand, right: -Presented to ED for progressive swelling and erythema on dorsum of the right hand and wrist after sustaining a dog bite on 07/29/23 -Was started on Augmentin by PCP day before admission but cellulitis progressed -ED able to confirm that dog up to date on rabies vaccination -Patient is up to date on tetanus booster -Afebrile, still no leukocytosis -Blood cultures obtained in ED, no growth after 24 hrs -S/P six doses of Unasyn since admission, -Currently cellulitis border was outlined on admission, monitoring for improvement but worsening -started on Zosyn, 4.5 g, IV, 8hr and daptomycin, 250 mg, IV, q24hrs -Tylenol and morphine for pain (pt w/ solitary kidney, so NSAIDs not recommended) -AM CBC, BMP (2) Asthma: -Stable on RA -Lungs are clear -Continue PRN albuterol (3) BENITEZ on CPAP: -HS CPAP ordered DVT Prophylaxis: BL SCD's for DVT PPX FENGI: HH diet Code status: Full code Admission and Anticipated Discharge Date Admission Date: July 30, 2023 Supervising Physician Co-Signing Physician Notes Attending Physician Supervision Note: I independently interviewed and examined the patient and verified the cline history and physical, reviewed labs and image studies and agree with findings and care plan noted above. Right hand cellulitis from dog bite- swelling better but faint erythema with extension beyond the marked line. switch abx for broader coverage, check mrsa nares. follow. Subjective Chief Complaint: Recent animal bite, worsening Primary Care Provider: DO Bibi Lr is a 63 year old female with a PMH significant for asthma, anxiety, and previous kidney donation for transplant who presented to the [facility] ED on 07/30/23 due to concerns of worsening cellulitis of the right hand. Per the ED, the patient was bit by her Boss' dog yesterday after she accidentally stepped on it while trying to clean something off the floor. She was seen by her PCP's office yesterday where they cleaned the wound and started her on Augmentin. She was seen for follow up earlier today and there was concern as the patient's erythema, swelling, and pain has increased. We were asked to admit the patient for IV antibiotics. She remained stable in the ED. Labs including CBC and CMP were unremarkable. Xray of the right hand was read as "Soft tissue swelling with no acute bony abnormality identified.". Prior to admission the patient was given a dose of Unasyn, 2mg IV morphine, and 4 mg IV zofran. The ED was able to confirm that the patient is up to date on her tetanus booster. At the time of the exam the patient was laying in bed in no acute distress. 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 hand and wrist. She still denies recent fever, chills, chest pain, SOB, abd pain, nausea, vomiting, diarrhea, dysuria, hematuria, melena. It appears to be getting worse, with increasing erythematous margins particularly around the thumb and up the wrist, residual swelling in MCPs of hand, decreased range of motion of the fingers, but better than yesterday evening.. The patient will remain in the hospital again overnight. Review of Systems Constitutional: no fever, no chills and no fatigue Respiratory: no cough, no chest congestion and no dyspnea Cardiovascular: no chest pain and no palpitations Gastrointestinal: no abdominal pain, no nausea, no vomiting, no constipation and no diarrhea/loose stools Genitourinary: no dysuria and no urinary frequency Musculoskeletal: no stiffness Neurologic: no headache(s) Physical Exam Constitutional: WD/WN, vitals as above well developed, well nourished and cooperative Respiratory: normal respiratory effort, lungs clear to auscultation Cardiovascular: RRR, no murmur, no edema Musculoskeletal: Extremities: + hand abnormality (redness, swelling on dorsal aspect of r. hand) Neurologic: Motor/Sensory: normal movement (grasping, palmar flexion and extension normal in r. hand) and no sensory deficit (normal to light touch, pain) Psychiatric: A+Ox3, euthymic affect Results & Data Results & Data Vital Signs (Past 12 Hours) Vital Signs Temp Pulse Resp BP Pulse Ox O2 Del Method 08/01/23 07:41 37.0 C 60 15 131/60 96 Room Air
[2023-08-01] MEDS: DAPTOmycin 250 MG in SYRINGE 0 ML IV SCH (12:22)
[2023-08-01] MEDS: PIPERACILLIN/TAZOBACTAM 4.5 GM in DEXTROSE 5% MINI-B 100 ML IV SCH (12:51)
[2023-08-01] MEDS: guaiFENesin/CODEINE 100MG/10MG 5ML UDC PO STA (20:54)
--- NOTE | 2023-08-02 06:56 | Discharge Summary ---
Date of Service August 02, 2023 Admission HPI Per Admitting Provider Bibi is a 63 year old female with a PMH significant for asthma, anxiety, and previous kidney donation for transplant who presented to the [facility] ED on 07/30/23 due to concerns of worsening cellulitis of the right hand. Per the ED, the patient was bit by her Boss' dog yesterday after she accidentally stepped on it while trying to clean something off the floor. She was seen by her PCP's office yesterday where they cleaned the wound and started her on Augmentin. She was seen for follow up earlier today and there was concern as the patient's erythema, swelling, and pain has increased. We were asked to admit the patient for IV antibiotics. She remained stable in the ED. Labs including CBC and CMP were unremarkable. Xray of the right hand was read as "Soft tissue swelling with no acute bony abnormality identified.". Prior to admission the patient was given a dose of Unasyn, 2mg IV morphine, and 4 mg IV zofran. The ED was able to confirm that the patient is up to date on her tetanus booster. At the time of the exam the patient was sitting in bed in no acute distress. She confirms the above history. She states that the swelling in the right hand is preventing her from completely closing her fist. She denies recent fever, chills, chest pain, SOB, abd pain, nausea, vomiting, diarrhea, dysuria, hematuria, melena. She is a full code and would want her to make medical decisions for her if she cannot make them herself. Please refer to Dr. Yeh's attestation for any changes to the treatment plan Discharge Exam Constitutional WD/WN, vitals as above well developed, well nourished, cooperative and comfortable Neck + neck tender; negative Brudzinski's sign and negative Kernig's sign Respiratory normal respiratory effort, lungs clear to auscultation Cardiovascular RRR, no murmur, no edema Gastrointestinal (Abdomen) normal bowel sounds, soft, nontender, no hepatosplenomegaly Musculoskeletal Extremities: + hand abnormality (redness, swelling on dorsal aspect of r. hand) Neurologic Motor/Sensory: normal movement (grasping, palmar flexion and extension normal in r. hand) and no sensory deficit (normal to light touch, pain) Psychiatric A+Ox3, euthymic affect Discharge Data Allergies Allergy/AdvReac Type Severity Reaction Status Date / Time Milk Containing Products Allergy Unknown Gastrointestinal Unverified 07/30/23 18:30 (Dairy) Upset Sulfa (Sulfonamide Allergy Unknown Unknown Verified 07/30/23 18:30 Antibiotics) NSAIDS (Non-Steroidal AdvReac Severe Advised to Verified 07/30/23 18:30 Anti-Inflamma avoid (solitary kidney) Consultations 07/30/23 18:40 ED Decision to Admit Stat Hospital Course (1) Infected dog bite of hand: (2) Cellulitis of hand, right: (1) Cellulitis of hand, right: -Admit to med/surge, Currently stable and non-toxic appearing -Presented to ED for progressive swelling and erythema on dorsum of the right hand and wrist after sustaining a dog bite on 07/29/23 -ED able to confirm that dog up to date on rabies vaccination -Patient is up to date on tetanus booster -Was started on Augmentin by PCP day before admission but cellulitis progressed -Afebrile, still no leukocytosis -Blood cultures obtained in ED, no growth after 24 hrs -S/P six doses of Unasyn since admission, Unasyn discontinued -started on Zosyn, 4.5 g, IV, 8hr and daptomycin, 250 mg, IV, q24hrs -Currently cellulitis border was outlined on admission, monitoring for improvement but worsening -Tylenol and morphine for pain (pt w/ solitary kidney, so NSAIDs not recommended) -AM CBC, BMP (2) Asthma: -Stable on RA -Lungs are clear -Continue PRN albuterol (3) BENITEZ on CPAP: -HS CPAP ordered DVT Prophylaxis: BL SCD's for DVT PPX FENGI: diet Code status: Full code Discharge Plan Discharge Items Patient Disposition: Home - Self-Care Reason For Visit: RIGHT HAND CELLULITIS Discharge Diagnosis: r. hand cellulitis Condition on Discharge: Good Activity: Resume your previous activity Non-emergency contact: Primary Care Provider Call non-emergency contact if: you have any medication questions, your symptoms worsen and you have a fever Follow-up/Referrals: Marybeth Avila DO [Primary Care Provider] - Diet: Regular Addtl Attending Provider Instructions: You were admitted to the hospital for right hand cellulitis associated with a dog bite. You were treated with ampicillin/sulbactam, morphine sulfate, Tylenol. A discharge summary will be sent to your primary care physician to ensure continuity of care. Please bring this discharge summary with you to your next office appointment so that your provider can review it at that time. Follow-up appointments: We have requested a follow-up appointment with your primary care physician within one week of discharge. Please call their office if you do not hear from them. Keep all your follow-up appointments as already scheduled. If you cannot make an appointment, notify your provider. Medications: Your medication list has been reviewed and reconciled upon discharge to ensure accuracy and continuity of care. An updated list of all your medications is included with your hospital discharge paperwork. Please review this list closely, and make note of any changes. We sent an extended course of a medication called Augmentin to your pharmacy. Take Augmentin 875/125 mg/one tablet, twice a day, for 12 more days. Take ibuprofen, naproxen sodium, or Tylenol for pain control, using dosing recommendations on the bottle. Take your medications as instructed; do not skip a dose of your medicines. Make sure all of your doctors know every medicine you are taking (including [id number]-[id number] medicines, vitamins, and supplements). Call your primary care provider before taking any new medicines (including [id number] medicines, vitamins, and supplements), because some of these may interact with your current medications, or may make your symptoms worse. Tell your primary care provider if you cannot afford your medications. CONTACT YOUR PRIMARY CARE PROVIDER if you experience any of the following: redness, swelling, warmth, pain or the hand that is not improving with antibiotics fevers, chills, spreading of the cellulitis Difficulty following your treatment plan, or difficulty taking medications CALL 911 OR GO TO THE EMERGENCY DEPARTMENT if you experience any of the following: Sudden, severe abdominal pain or nausea/vomiting Severe chest pain, or chest pain that radiates (moves) to your jaw or arm Sudden, severe shortness of breath or difficulty breathing Thank you for allowing us to participate in your care Pending Studies at Discharge: Yes Studies:: blood cultures Stand-Alone Forms: My [facility] Only [employer], Smoking Cessation Medications and DC Order Prescriptions: New amoxicillin-pot clavulanate 875-125 mg tablet 1 tab PO BID Qty: 14 0RF Continued (DME) Auto Titrating CPAP Misc See Rx Instructions .MEDSUPPLY Qty: 1 0RF Rx Instructions: Auto PAP with 5-16cm H20. Lifetime usage. G47.33 (DME) CPAP Supplies Mis See Rx Instructions .MEDSUPPLY Qty: 1 0RF Rx Instructions: CPAP supplies, mask, headgear, filters, tubing, water chamber. G47.33 cholecalciferol (vitamin D3) 125 mcg (5,000 unit) capsule 125 mcg PO DAILY albuterol sulfate 1.25 mg/3 mL solution for nebulization 1.25 mg inhalation QID PRN (Reason: shortness of breath or wheezing) Qty: 90 3RF azelastine 137 mcg (0.1 %) aerosol,spray 1 spray INTRANASAL BID Qty: 30 3RF (DME) nebulizers [Aeroneb Go Nebulizer] Mis See Rx Instructions .MEDSUPPLY Qty: 1 0RF Rx Instructions: With tubing and supplies. J44.9. J45.9. budesonide-formoterol [Symbicort] 160-4.5 mcg/actuation HFA aerosol inhaler 2 inh inhalation BID Qty: 10.2 12RF escitalopram oxalate [Lexapro] 10 mg Tablet 10 mg PO QPM fluticasone propionate 50 mcg/actuation [place],Suspension 1 spray INTRANASAL DAILY melatonin 10 mg Tablet 10 mg PO HS pantoprazole 40 mg tablet,delayed release (DR/EC) 40 mg PO DAILY amoxicillin-pot clavulanate 875-125 mg tablet 1 tab PO BID Rx Instructions: Start Date 07/29/23 - End Date 08/05/23. Patient has taken 3 doses as of 07/30/23 Medical Marijuana 1 gummy PO HS Admission Data Admit Date/Time: 07/30/23 18:43 Attending Provider: Karishma Hernandez Admit Provider: Aidan Yeh Primary Care Provider: Marybeth Avila Other Providers: Aidan Yeh Other Interventions: Discharge Summary Assessment (RN) Last Done: 07/31/23 15:47 Resident Activity Tracking Resident Involvement: Resident Care Provided Care Provided: Adult Hospital Medicine
[2023-08-02 07:34] LABS: Basophils # (auto) 0.04 K/uL (0.00-0.20); Basophils % (auto) 0.6 %; Eosinophils # (auto) 0.26 K/uL (0.00-0.50); Eosinophils % (auto) 3.9 %; Hematocrit (blood only) 35.1 % (37.0-47.0); Hemoglobin 11.8 g/dl (12.0-16.0); Immature Granulocytes # (auto) 0.02 K/uL (0.01-0.20); Immature Granulocytes % (auto) 0.3 %; Lymphocytes # (auto) 1.93 K/uL (1.20-3.40); Lymphocytes % (auto) 28.8 %; Mean Corpuscular Hemoglobin 31.8 pg (25.0-34.0); Mean Corpuscular Hgb Conc 33.6 g/dL (32.0-36.0); Mean Corpuscular Volume 94.6 fL (80.0-100.0); Mean Platelet Volume 9.8 fL (9.4-12.4); Monocytes # (auto) 0.71 K/uL (0.11-0.59); Monocytes % (auto) 10.6 %; Neutrophils # (auto) 3.75 K/uL (1.40-6.50); Neutrophils % (auto) 55.8 %; Platelet Count 338 K/uL (130-400); RDW Coefficient of Variation 11.1 % (11.5-14.5); RDW Standard Deviation 38.1 fL (36.4-46.3); Red Blood Count 3.71 M/uL (4.20-5.40); White Blood Count 6.71 K/ul (4.8-10.8)
[2023-08-02 07:46] LABS: BUN Creatinine Ratio 12.9 (10-20); Calcium 9.4 mg/dl (8.6-10.3); Creatinine Clr Calc Pharmacy 37.9 ml/min; Est GFR (African American) 40.6 ml/min; Potassium 4.1 mmol/L (3.5-5.1)
--- NOTE | 2023-08-02 13:26 | Hospitalist Progress Note ---
Date of Service August 02, 2023 Assessment & Plan (1) Infected dog bite of hand: (2) Cellulitis of hand, right: Plan: (1) Cellulitis of hand, right: -Admit to med/surge, Currently stable and non-toxic appearing -Presented to ED for progressive swelling and erythema on dorsum of the right hand and wrist after sustaining a dog bite on 07/29/23 -ED able to confirm that dog up to date on rabies vaccination -Patient is up to date on tetanus booster -Was started on Augmentin by PCP day before admission but cellulitis progressed -Afebrile, still no leukocytosis -Blood cultures obtained in ED, no growth after 48 hrs -S/P six doses of Unasyn since admission, Unasyn discontinued -started on Zosyn, 4.5 g, IV, 8hr and daptomycin, 250 mg, IV, q24hrs -Currently cellulitis border was outlined on admission, monitoring for improvement but worsening -Tylenol and morphine for pain (pt w/ solitary kidney, Cr 1.55, so NSAIDs not recommended now) -AM CBC, BMP -MRI w/o con (r. hand) ordered to rule out tenosynovitis (2) MARTINA - Increased Cr, 1.55 <- 1.29 <- 1.19 (since admission), encouraged pt to push fluids - monitor BMP (3) Asthma: -Stable on RA -Lungs are clear -Continue PRN albuterol (4) BENITEZ on CPAP: -HS CPAP ordered DVT Prophylaxis: BL SCD's for DVT PPX FENGI: HH diet Code status: Full code Admission and Anticipated Discharge Date Admission Date: July 30, 2023 Supervising Physician Co-Signing Physician Notes I personally examined the patient and verified all cline points of history and exam, discussed case, and agree with decision making with Dr Loly Bell still hurts. Vitals noted, in general she is awake and alert pleasant no distress. HEENT normocephalic atraumatic mucous membranes moist. Breathing unlabored no accessory muscle use good effort. Skin shows no rashes, there is really no erythema, but she does still have rather significant tenderness along her extensor tendons, not just at the area of the puncture wounds although that is where it is the most tender. No crepitus. Dog bite/hand cellulitisfailed Augmentin/Unasynmost likely due to MRSA being introduced as well, and given that the erythema has gotten so much better, I suspect this is the case. Also hard to rule out tenosynovitisespecially given where the puncture wounds are and her tenderness along her extensor tendonscheck MRI, consult orthopedics if appears that there is significant tenosynovitis or other deep tissue infection. Subjective Chief Complaint: Recent animal bite, worsening Primary Care Provider: Marybeth Avila DO Mtz is a 63 year old female with a PMH significant for asthma, anxiety, and previous kidney donation for transplant who presented to the [facility] ED on 07/30/23 due to concerns of worsening cellulitis of the right hand. Per the ED, the patient was bit by her Boss' dog yesterday after she accidentally stepped on it while trying to clean something off the floor. She was seen by her PCP's office yesterday where they cleaned the wound and started her on Augmentin. She was seen for follow up earlier today and there was concern as the patient's erythema, swelling, and pain has increased. We were asked to admit the patient for IV antibiotics. She remained stable in the ED. Labs including CBC and CMP were unremarkable. Xray of the right hand was read as "Soft tissue swelling with no acute bony abnormality identified.". Prior to admission the patient was given a dose of Unasyn, 2mg IV morphine, and 4 mg IV zofran. The ED was able to confirm that the patient is up to date on her tetanus booster. At the time of the exam the patient was laying in bed in no acute distress. 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 hand and wrist is still markedly erythematous. She still denies recent fever, chills, chest pain, SOB, abd pain, nausea, vomiting, diarrhea, dysuria, hematuria, melena. It appears to be getting worse, with increasing erythematous margins particularly around the thumb and up the wrist, residual swelling in MCPs of hand, decreased range of motion of the fingers, but better than yesterday evening.. The patient will remain in the hospital again overnight. Review of Systems Constitutional: no fever, no chills and no fatigue Respiratory: no cough, no chest congestion and no dyspnea Cardiovascular: no chest pain and no palpitations Gastrointestinal: no abdominal pain, no nausea, no vomiting, no constipation and no diarrhea/loose stools Genitourinary: no dysuria and no urinary frequency Musculoskeletal: no stiffness Neurologic: no headache(s) Physical Exam Constitutional: WD/WN, vitals as above well developed, well nourished, cooperative and comfortable Neck: + neck tender; negative Brudzinski's sig n and negative Kernig's sign Respiratory: normal respiratory effort, lungs clear to auscultation Cardiovascular: RRR, no murmur, no edema Gastrointestinal (Abdomen): normal bowel sounds, soft, nontender, no hepatosplenomegaly Musculoskeletal: Extremities: + hand abnormality (redness, swelling on dorsal aspect of r. hand) Neurologic: Motor/Sensory: normal movement (grasping, palmar flexion and extension normal in r. hand) and no sensory deficit (normal to light touch, pain) Psychiatric: A+Ox3, euthymic affect Results & Data Results & Data Vital Signs (Past 12 Hours) Vital Signs Temp Pulse Resp BP Pulse Ox O2 Del Method 08/02/23 08:04 36.9 C 58 L 17 117/69 97 Room Air
--- NOTE | 2023-08-02 18:47 | Billing Data ---
Date of Service August 02, 2023 Coding Level of Care Code 47510 SUB INP/OBS CARE MIN
[2023-08-02] MEDS: guaiFENesin/CODEINE 100MG/10MG 5ML UDC PO STA (22:15)
[2023-08-03 08:33] LABS: Basophils # (auto) 0.05 K/uL (0.00-0.20); Basophils % (auto) 0.6 %; Eosinophils # (auto) 0.16 K/uL (0.00-0.50); Hematocrit (blood only) 36.8 % (37.0-47.0); Hemoglobin 12.6 g/dl (12.0-16.0); Immature Granulocytes # (auto) 0.03 K/uL (0.01-0.20); Immature Granulocytes % (auto) 0.4 %; Lymphocytes # (auto) 1.15 K/uL (1.20-3.40); Lymphocytes % (auto) 14.3 %; Mean Corpuscular Hgb Conc 34.2 g/dL (32.0-36.0); Mean Corpuscular Volume 93.4 fL (80.0-100.0); Mean Platelet Volume 9.3 fL (9.4-12.4); Monocytes # (auto) 0.78 K/uL (0.11-0.59); Monocytes % (auto) 9.7 %; Platelet Count 333 K/uL (130-400); RDW Coefficient of Variation 11.1 % (11.5-14.5); RDW Standard Deviation 37.7 fL (36.4-46.3); Red Blood Count 3.94 M/uL (4.20-5.40); White Blood Count 8.07 K/ul (4.8-10.8)
[2023-08-03 08:46] LABS: Calcium 9.5 mg/dl (8.6-10.3); Creatinine Clr Calc Pharmacy 41.1 ml/min; Est GFR (African American) 44.7 ml/min; Est GFR (Non-African American) 38.6 ml/min
--- NOTE | 2023-08-03 10:06 | Magnetic Resonance Report ---
MRI OF THE RIGHT HAND WITHOUT IV CONTRAST CLINICAL HISTORY: Dog bite injury. Swelling and pain. Cellulitis. Assess for tenosynovitis. COMPARISON STUDY: Radiographs of the right hand dated 07/30/2023. TECHNIQUE: There is no MRI evidence of acute fracture. Mild arthritic change is seen throughout the w rist with patchy foci of marrow edema. No erosive change is seen. The visualized flexor and extensor tendons appear intact. There is soft tissue edema identified along the dorsal aspect of the hand, con sistent with reported history of cellulitis. There is fluid around several of the extensor tendons in dicating mild tenosynovitis. No organized fluid collection is seen to indicate abscess. IMPRESSION: 1. There is no MRI evidence of acute fracture. 2. Soft tissue edema along the dorsal aspect of the hand is typical for cellulitis as clinically susp ected. 3. No organized fluid collection is seen to indicate abscess. 4. There is mild fluid around several of the extensor tendons at the site of interest indicating teno synovitis. Dictated: 08/03/2023 9:23 AM Transcribed: 08/03/2023 9:30 AM Jay [id number] [email or web address] Electronically signed by: Sergei Carreon M.D. 08/03/2023 10:05 AM
[2023-08-03] MEDS: ONDANSETRON INJ 2 MG/ML 2 ML VIAL IV PRN (11:53)
--- NOTE | 2023-08-03 13:54 | Hospitalist Progress Note ---
Date of Service August 03, 2023 Assessment & Plan (1) Infected dog bite of hand: (2) Cellulitis of hand, right: (3) Tenosynovitis of hand: Plan (1) Cellulitis of hand, right: -Admitted to med/surge, Currently stable and non-toxic appearing -Presented to ED for progressive swelling and erythema on dorsum of the right hand and wrist after sustaining a dog bite on 07/29/23 -ED able to confirm that dog up to date on rabies vaccination -Patient is up to date on tetanus booster -Was started on Augmentin by PCP day before admission but cellulitis progressed -Afebrile, still no leukocytosis -Blood cultures obtained in ED, no growth after 48 hrs -S/P six doses of Unasyn since admission, Unasyn discontinued -started on Zosyn, 4.5 g, IV, 8hr and daptomycin, 250 mg, IV, q24hrs -Currently cellulitis border was outlined on admission, monitoring for improvement -Tylenol and morphine for pain (pt w/ solitary kidney, Cr 1.55, so NSAIDs not recommended now) -MRI w/o con (r. hand): soft tissue edema of dorsal aspect of hand typical for cellulitis; mild fluid around extensor tendons indicating tenosynovitis -AM CBC, BMP (2) MARTINA - Increased Cr, 1.43 <- 1.55 <- 1.19 (since admission), encouraged pt to push fluids - monitor BMP (3) Asthma: -Stable on RA -Lungs are clear -Continue PRN albuterol (4) BENITEZ on CPAP: -HS CPAP ordered DVT Prophylaxis: BL SCD's for DVT PPX FENGI: HH diet Code status: Full code Admission and Anticipated Discharge Date Admission Date: August 02, 2023 Subjective Chief Complaint: Recent animal bite, worsening Primary Care Provider: Marybeth Avila DO Bibi is a 63 year old female with a PMH significant for asthma, anxiety, and previous kidney donation for transplant who presented to the [facility] ED on 07/30/23 due to concerns of worsening cellulitis of the right hand. Per the ED, the patient was bit by her Boss' dog yesterday after she accidentally stepped on it while trying to clean something off the floor. She was seen by her PCP's office yesterday where they cleaned the wound and started her on Augmentin. She was seen for follow up earlier today and there was concern as the patient's erythema, swelling, and pain has increased. We were asked to admit the patient for IV antibiotics. She remained stable in the ED. Labs including CBC and CMP were unremarkable. Xray of the right hand was read as "Soft tissue swelling with no acute bony abnormality identified.". Prior to admission the patient was given a dose of Unasyn, 2mg IV morphine, and 4 mg IV zofran. The ED was able to confir m that the patient is up to date on her tetanus booster. At the time of the exam the patient was laying in bed in no acute distress. The patient's pain, swelling, erythema, and motor strenght as assessed through mother helper strength, finger abuction/adduction, and wrist flexion/extension have all improved. Now residual bruising can be noticed in the dorsal aspect of the r. hand/wrist area. She still denies recent fever, chills, chest pain, SOB, abd pain, vomiting, diarrhea, dysuria, hematuria, melena. The patient did experience some nausea last night. The patient notified that the MRI was positive for tenosynovitis, an orthopedic consult placed, and she will remain in the hospital again overnight. Review of Systems Constitutional: no fever, no chills and no fatigue Respiratory: no cough, no chest congestion and no dyspnea Cardiovascular: no chest pain and no palpitations Gastrointestinal: no abdominal pain, no nausea, no vomiting, no constipation and no diarrhea/loose stools Genitourinary: no dysuria and no urinary frequency Musculoskeletal: no stiffness Neurologic: no headache(s) Physical Exam Constitutional: WD/WN, vitals as above Respiratory: normal respiratory effort, lungs clear to auscultation Cardiovascular: RRR, no murmur, no edema Gastrointestinal (Abdomen): normal bowel sounds, soft, nontender, no hepatosplenomegaly Musculoskeletal: Extremities: + wrist abnormality Right and + hand abnormality (improving swelling, redness of r. hand and wrist) Right Psychiatric: A+Ox3, euthymic affect Results & Data Results & Data Vital Signs (Past 12 Hours) Vital Signs Temp Pulse Resp BP Pulse Ox O2 Del Method 08/03/23 08:16 36.9 C 80 18 130/60 95 Room Air 08/03/23 07:40 Room Air
--- NOTE | 2023-08-03 15:25 | Orthopedic Consultation ---
Date of Service August 03, 2023 Assessment & Plan (1) Infected dog bite of hand: In light of her improvement on IV antibiotics, lack of definitive fluid collection on MRI, stable white count and VS, as well as reassuring physical exam, no urgent surgical intervention indicated by orthopedics. Would recommend antibiotics per hospitalist/infectious disease and follow-up with PCP. We can also see her in the office at [facility] as a follow-up to monitor her improvement as well. This was all discussed with the patient. She was appreciative of the visit and was understanding of the plan. Please reach out to ortho with any other questions or concerns. (2) Cellulitis of hand, right: (3) Tenosynovitis of hand: History of Present Illness Reason for Consultation: Dog bite to the right hand Requesting Physician: Regino Salcido Attending Physician: Jr Cole DO Bibi is a 63 year old female who is being consulted for swelling of the right hand after a dog bite. She states that this past , she was bit by her boss's dog when she accidentally stepped on its paw while it was sleeping. She was trying to clean something off the floor near its face and was bit after she stepped on it. She went to her PCP who put her on Augmentin. She did not have any improvement in her symptoms and actually had worsening symptoms of erythema, increased swelling and inability to move her hand due to pain and tightness. She went to the ED on 07/30/23 where she was then admitted for IV antibiotics. At today's visit, she is doing well. She denies any fever, chills or constitutional symptoms. She is currently yon IV Zosyn and IV Daptomycin. signs WNL. She reports a drastic change in her symptoms from yesterday for the better. She reports improvement in her ability to make a fist (even though she still has some limitations) as well as a decrease in swelling. Her WBC is 8.07. She did hackett ve any MRI on 08/02/23 that did not show any abscess or fluid collections but did show some tenosynovitis and soft tissue edema typical for cellulitis. Overall, she is doing well today. Allergies Allergy/AdvReac Type Severity Reaction Status Date / Time Milk Containing Products Allergy Unknown Gastrointestinal Unverified 07/30/23 18:30 (Dairy) Upset Sulfa (Sulfonamide Allergy Unknown Unknown Verified 07/30/23 18:30 Antibiotics) NSAIDS (Non-Steroidal AdvReac Severe Advised to Verified 07/30/23 18:30 Anti-Inflamma avoid (solitary kidney) Home Medications Medication Instructions Recorded Confirmed Type escitalopram oxalate 10 mg tablet 10 mg PO QPM 07/18/18 07/30/23 History (Lexapro) fluticasone propionate 50 1 spray intranasal DAILY 09/15/21 07/30/23 History mcg/actuation nasal spray,suspension melatonin 10 mg tablet 10 mg PO HS 09/15/21 07/30/23 History cholecalciferol (vitamin D3) 125 125 mcg PO DAILY 10/14/21 07/30/23 History mcg (5,000 unit) capsule albuterol sulfate 1.25 mg/3 mL 1.25 mg (3 mL) inhalation QID PRN 07/03/22 07/30/23 Rx solution for nebulization shortness of breath or wheezing #90 mL azelastine 137 mcg (0.1 %) nasal 1 spray intranasal BID #30 mL 07/03/22 07/30/23 Rx spray aerosol nebulizers (AerNetMinderb Go Nebulizer) #1 ea 07/03/22 06/01/23 Rx budesonide-formoterol HFA 160 2 inh inhalation BID #10.2 grams 03/31/23 07/30/23 Rx mcg-4.5 mcg/actuation aerosol inhaler (Symbicort) Auto Titrating CPAP #1 ea 07/05/23 Rx CPAP Supplies #1 ea 07/05/23 Rx Medical Marijuana 1 gummy PO HS 07/30/23 07/30/23 History pantoprazole 40 mg tablet,delayed 40 mg PO DAILY 07/30/23 07/30/23 History release cefdinir 300 mg capsule 300 mg PO BID 11 days #22 caps 08/03/23 Rx doxycycline hyclate 100 mg capsule 100 mg PO BID 11 days #22 caps 08/03/23 Rx Past Med/Surg History Medical History Solitary kidney s/p donation (2012) Chronic back pain 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 Reactive airway disease Inhaler PRN Surgical History History of surgery Right biceps repair Status post trigger finger release History of nephrectomy, unilateral 2012 (donated) History of cholecystectomy History of appendectomy History of colonoscopy with polypectomy History of eyelid surgery History of sinus surgery History of tooth extraction Social History Smoking Status: Never smoker Tobacco Type: Cigarettes Cigarettes Per Day: 5; Second Hand Exposure: No; Do You Dip or Chew Tobacco: No; Hx Alcohol Use: No Hx Substance Use: Yes Last Used Substance Other:: Pt uses at HS to help her sleep Substance Use Type Other:: medical sabi Preferred Language: Wolof Communication Ability: Effective Tinsel Machine Operator Required: No Beliefs That Will Affect Care: None Current Living Situation: Spouse Feels Safe at Home: Yes Assistive Devices: None Review of Systems All systems reviewed & are unremarkable except as noted in HPI & below. Physical Exam She is resting comfortably in her hospital bed. She has full ROM of the right elbow and right wrist. Her wrist ROM is painless and unaffected. There are 2 scabbed over cortez on the dorsum of her right hand. No drainage or openings. A previous provider did outline the area of erythema and edema a few days ago. There is no erythema on hand. Some swelling on the dorsum of the hand but distant from the outlines. Her skin is wrinkled. She has full sensation is all finger. She is able to flex and extend all fingers at the PIP and DIP joints without pain or discomfort. When she flexes at her MCP joints, she feels a stretching pain in the dorsum of the hand and cannot fully make a fist because of it, however she has good motion still. I am able to get her into full extension without much discomfort. NV intact. Constitutional WD/WN, vitals as above Cardiovascular vascularity grossly preserved Musculoskeletal as above Skin as above Psychiatric A+Ox3, euthymic affect Results & Data Results & Data Laboratory Results Laboratory Results - last 48 hr 08/02/23 08/03/23 06:50 08:04 WBC 6.71 8.07 RBC 3.71 L 3.94 L Hgb 11.8 L 12.6 Hct 35.1 L 36.8 L MCV 94.6 93.4 MCH 31.8 32.0 MCHC 33.6 34.2 RDW Std Deviation 38.1 37.7 RDW Coeff of Boy 11.1 L 11.1 L Plt Count 338 333 MPV 9.8 9.3 L Immature Gran % (Auto) 0.3 0.4 Neut % (Auto) 55.8 73.0 Lymph % (Auto) 28.8 14.3 Brooks % (Auto) 10.6 9.7 Eos % (Auto) 3.9 2.0 Baso % (Auto) 0.6 0.6 Neut # (Auto) 3.75 5.90 Lymph # (Auto) 1.93 1.15 L Brooks # (Auto) 0.71 H 0.78 H Eos # (Auto) 0.26 0.16 Baso # (Auto) 0.04 0.05 Immature Gran # (Auto) 0.02 0.03 Sodium 140 138 Potassium 4.1 4.0 Chloride 106 105 Carbon Dioxide 27 24 Anion Gap 7 9 BUN 20 20 Creatinine 1.55 H 1.43 H Est Cr Clr Drug Dosing 37.9 41.1 Est GFR ( Amer) 40.6 44.7 Est GFR (Non-Af Amer) 35.0 38.6 BUN/Creatinine Ratio 12.9 14.0 Glucose 101 H 104 H Calcium 9.4 9.5 Diagnostic Findings Did independently review the MRI of the right hand. No obvious fluid collections in the hand to support the presence of an abscess. There is some soft tissue edema, which we agree with the radiologist is consistent with cellulitis. PG Care Time/CCT Total # of Minutes Spent Total Time Spent with Patient: Total time spent is greater than 50% in coordination of care (as documented) at patient's floor/unit and/or counseling patient: Supervising Physician Co-Signing Physician Notes Agree with the above note. I independently evaluated the patient. No indications for surgical decompression based on exam and MRI review. Followup with orthopedics if symptoms return. Expect continued improvement on oral regimen. May need some therapy to address tendonitis and stiffness. Coding Level of Care Code 08726 IN/OBS CONSULT LVL 4,60M Diagnoses Infected dog bite of hand S61.459A; L08.9; W54.0XXA Cellulitis of hand, right L03.113 Tenosynovitis of hand M65.9
--- NOTE | 2023-08-03 17:10 | Discharge Summary ---
Date of Service August 03, 2023 Admission Exam Per Admitting Provider Physical Exam: Physical Exam: General: In no acute distress, stated age, well-nourished, good hygiene HEENT: Normocephalic, atraumatic, no scleral icterus, pupils around round, symmetrical, and reactive to light, moist mucus membranes, trachea midline, no thyromegaly Chest/Pulm: No respiratory distress, symmetrical chest expansion, clear breath sounds throughout Cardiac: RRR, no murmurs noted Abdomen: Negative for ascites and bruising, normoactive bowel sounds, soft, non- tender to palpation throughout Musculoskeletal: See picture below Extremities: Radial pulses are intact and symmetrical BL Skin: See picture below Neuro: Intact sensation and motor function in the Right wrist and hand Psych: No acute distress, calm and cooperative during the exam Principal Diagnosis cellulitis, dog-bite infection Discharge Exam Constitutional WD/WN, vitals as above Respiratory normal respiratory effort, lungs clear to auscultation Cardiovascular RRR, no murmur, no edema Gastrointestinal (Abdomen) normal bowel sounds, soft, nontender, no hepatosplenomegaly Musculoskeletal Extremities: + wrist abnormality and + hand abnormality (improving swelling, redness of r. hand and wrist) Psychiatric A+Ox3, euthymic affect Discharge Data Allergies Allergy/AdvReac Type Severity Reaction Status Date / Time Milk Containing Products Allergy Unknown Gastrointestinal Unverified 07/30/23 18:30 (Dairy) Upset Sulfa (Sulfonamide Allergy Unknown Unknown Verified 07/30/23 18:30 Antibiotics) NSAIDS (Non-Steroidal AdvReac Severe Advised to Verified 07/30/23 18:30 Anti-Inflamma avoid (solitary kidney) Consultations 07/30/23 18:40 ED Decision to Admit Stat 08/03/23 10:46 Consult Orthopedic Surgery Routine Ordered Studies 08/02/23 10:44 MRI Hand [MR hand RT wo con] Routine Hospital Course (1) Infected dog bite of hand: (2) Cellulitis of hand, right: (3) Tenosynovitis of hand: Plan (1) Cellulitis of hand, right: -Admitted to med/surge, Currently stable and non-toxic appearing -Presented to ED for progressive swelling and erythema on dorsum of the right hand and wrist after sustaining a dog bite on 07/29/23 -ED able to confirm that dog up to date on rabies vaccination -Patient is up to date on tetanus booster -Was started on Augmentin by PCP day before admission but cellulitis progressed -Afebrile, still no leukocytosis -Blood cultures obtained in ED, no growth after 48 hrs -S/P six doses of Unasyn since admission, Unasyn discontinued -started on Zosyn, 4.5 g, IV, 8hr and daptomycin, 250 mg, IV, q24hrs -Currently cellulitis border was outlined on admission, monitoring for improvement -Tylenol for pain - Discharge antibiotics: cefdinir and daptomycin for a course of 11 days each. -MRI w/o con (r. hand): soft tissue edema of dorsal aspect of hand typical for cellulitis; mild fluid around extensor tendons indicating tenosynovitis - Orthopedics consulted and stated: "Would recommend antibiotics per hospitalist/infectious disease and follow-up with PCP. We can also see her in the office at [facility] as a follow-up to monitor her improvement as well." This was discussed with the patient as well. (2) MARTINA, improving - Increased Cr, 1.43 <- 1.55 <- 1.19 (since admission), improving, encouraged pt to push fluids (3) Asthma: -Stable on RA -Lungs are clear -Continue PRN albuterol (4) BENITEZ on CPAP: -HS CPAP ordered DVT Prophylaxis: BL SCD's for DVT PPX FENGI: HH diet Code status: Full code Total Time Total Time Spent Total Time Spent (In Minutes): <30 Discharge Plan Discharge Items Patient Disposition: Home - Self-Care Reason For Visit: RIGHT HAND CELLULITIS Discharge Diagnosis: r. hand cellulitis Condition on Discharge: Good Activity: Resume your previous activity Non-emergency contact: Primary Care Provider Call non-emergency contact if: you have any medication questions, your symptoms worsen and you have a fever Follow-up/Referrals: Marybeth Avila DO [Primary Care Provider] - Diet: Regular Addtl Attending Provider Instructions: You were admitted to the hospital for right hand cellulitis associated with a dog bite. You were treated with ampicillin/sulbactam, Zosyn, daptomycin, morphine sulfate, Tylenol. A discharge summary will be sent to your primary care physician to ensure continuity of care. Please bring this discharge summary with you to your next office appointment so that your provider can review it at that time. Follow-up appointments: We have requested a follow-up appointment with your primary care physician within one week of discharge. Please call their office if you do not hear from them. Keep all your follow-up appointments as already scheduled. If you cannot make an appointment, notify your provider. Medications: Your medication list has been reviewed and reconciled upon discharge to ensure accuracy and continuity of care. An updated list of all your medications is included with your hospital discharge paperwork. Please review this list closely, and make note of any changes. We sent a course of a medication called cefdinir to your pharmacy. Take cefdinir, 300 mg, by mouth, twice a day, for 11 days. We sent a course of a medication called doxycycline hyclate to your pharmacy. Take doxycycline hyclate, 100 mg, twice a day, for 11 days. Take Tylenol for pain control, using dosing recommendations on the bottle. Take your medications as instructed; do not skip a dose of your medicines. Make sure all of your doctors know every medicine you are taking (including pryp-oyv-vyncghh medicines, vitamins, and supplements). Call your primary care provider before taking any new medicines (including [id number]-[id number] medicines, vitamins, and supplements), because some of these may interact with your current medications, or may make your symptoms worse. Tell your primary care provider if you cannot afford your medications. CONTACT YOUR PRIMARY CARE PROVIDER if you experience any of the following: redness, swelling, warmth, pain or the hand that is not improving with antibiotics fevers, chills, spreading of the cellulitis Difficulty following your treatment plan, or difficulty taking medications CALL 911 OR GO TO THE EMERGENCY DEPARTMENT if you experience any of the following: Sudden, severe abdominal pain or nausea/vomiting Severe chest pain, or chest pain that radiates (moves) to your jaw or arm Sudden, severe shortness of breath or difficulty breathing Thank you for allowing us to participate in your care Pending Studies at Discharge: Yes Studies:: blood cultures Stand-Alone Forms: My [employer], Smoking Cessation Medications and DC Order Prescriptions: New doxycycline hyclate 100 mg capsule 100 mg PO BID 11 Days Qty: 22 0RF cefdinir 300 mg capsule 300 mg PO BID 11 Days Qty: 22 0RF Continued (DME) Auto Titrating CPAP Misc See Rx Instructions .MEDSUPPLY Qty: 1 0RF Rx Instructions: Auto PAP with 5-16cm H20. Lifetime usage. G47.33 (DME) CPAP Supplies Mis See Rx Instructions .MEDSUPPLY Qty: 1 0RF Rx Instructions: CPAP supplies, mask, headgear, filters, tubing, water chamber. G47.33 cholecalciferol (vitamin D3) 125 mcg (5,000 unit) capsule 125 mcg PO DAILY albuterol sulfate 1.25 mg/3 mL solution for nebulization 1.25 mg inhalation QID PRN (Reason: shortness of breath or wheezing) Qty: 90 3RF azelastine 137 mcg (0.1 %) aerosol,spray 1 spray INTRANASAL BID Qty: 30 3RF (DME) nebulizers [Aeroneb Go Nebulizer] [facility] [place] See Rx Instructions .MEDSUPPLY Qty: 1 0RF Rx Instructions: With tubing and supplies. J44.9. J45.9. budesonide-formoterol [Symbicort] 160-4.5 mcg/actuation HFA aerosol inhaler 2 inh inhalation BID Qty: 10.2 12RF escitalopram oxalate [Lexapro] 10 mg Tablet 10 mg PO QPM fluticasone propionate 50 mcg/actuation Edwards,Suspension 1 spray INTRANASAL DAILY melatonin 10 mg Tablet 10 mg PO HS pantoprazole 40 mg tablet,delayed release (DR/EC) 40 mg PO DAILY Medical Marijuana 1 gummy PO HS Discontinued amoxicillin-pot clavulanate 875-125 mg tablet 1 tab PO BID Rx Instructions: Start Date 07/29/23 - End Date 08/05/23. Patient has taken 3 doses as of 07/30/23 Discharge Orders: Discharge Order (Routine); Ordered 08/03/23 Ordered By: Jr Green/Other Patient Handouts: Infectious Tenosynovitis Finger Admission Data Admit Date/Time: 08/02/23 15:24 Attending Provider: Jr Cole Admit Provider: Aidan Yeh Primary Care Provider: Marybeth Avila Other Providers: Aidan Yeh; Familia Smallwood; Leticia Esparza; Ariela Jordan; Sha Rodrigez; Princess Robb; Everardo Sanford; Rosa Noriega; Warren Kohler; Irving Cm; Ruba Carrillo; Irving Chong; Danish Parker Other Interventions: Discharge Summary Assessment (RN) Last Done: 08/03/23 16:48 Supervising Physician Co-Signing Physician Notes I personally examined the patient and verified all cline points of history and exam, discussed case, and agree with decision making with Dr Salcido Hand continues to feel better. MRI reviewed. Orthopedics input appreciated. Vitals noted, in general she is awake and alert pleasant no distress. HEENT normocephalic atraumatic mucous membranes moist. Right hand with essentially resolved erythema now looks more like resolving bruising. Puncture wounds less tender but leasing machine tender, extensor tendon region still reasonably tender but no fluctuance, improved range of motion. Dog bite/hand cellulitis/fortunately mild tenosynovitisno surgical indications. Improving on daptomycin and Zosynsafe/stable for homediscussed with patient that I suspect MRSA type gram-positive's were likely why she failed Unasyn or Augmentinafter discussion of multiple different antibiotic options, home on doxycycline and cefdinir. Creatinine just above her normal range, overall reassuring, outpatient labs with her follow-up. Follow-up with primary care later this week and then early to mid next week, to ensure she continues to get better on her p.o. regimen. Orthopedics referral again if she stalls out on improvement, however has any worsening. Otherwise as above.
--- NOTE | 2023-08-03 19:14 | Billing Data ---
Date of Service August 03, 2023 Coding Level of Care Code 27323 IN/OBS DISCH 30 MIN/LESS
== END 2023-08-03 18:19 | disposition home or self-care (01) | DRG 603 ==
LOC: 3N 16:21 → ED 16:21 → SUATTDRO 18:43 → 3N 22:37 → SUATTDRO 08-02 15:24
DX: M65.841 Other synovitis and tenosynovitis, right hand; Z90.5 Acquired absence of kidney; N17.9 Acute kidney failure, unspecified; L03.113 Cellulitis of right upper limb; G47.33 Obstructive sleep apnea (adult) (pediatric); W54.0XXA Bitten by dog, initial encounter; Z88.2 Allergy status to sulfonamides; S61.451A Open bite of right hand, initial encounter; J45.909 Unspecified asthma, uncomplicated; Y92.89 Other specified places as the place of occurrence of the external cause